=== PATIENT | male | born 1985 | race Caucasian/White ===

== ENCOUNTER 2023-02-27 06:22 | Emergency (ER) | payer BC ==
[~2023-02-27] VITALS: Ht 167.6 cm; Wt 96.0 kg
[2023-02-27 06:25] VITALS: BP 120/84; PULSE 112; RESP 16; TEMP 98.5; O2SAT 97
[2023-02-27 07:41] LABS: BASOPHILS % 0.3 % (0.0-2.0); EOSINOPHILS % 0.9 % (0.0-5.0); HEMATOCRIT. 47.1 % (42.0-52.0); HEMOGLOBIN. 15.9 g/dL (14.0-18.0); LYMPHOCYTES % 7.6 % (20.0-50.0); MEAN CORPUSCULAR HGB CONC 33.8 g/dL (31.0-37.0); MEAN CORPUSCULAR VOLUME 85.8 fL (80.0-94.0); MEAN PLATELET VOLUME 8.6 fl (7.4-10.4); MONOCYTES % 5.6 % (2.0-8.0); NEUTROPHILS % 85.6 % (40.0-76.0); PLATELET 265 x1000/uL (130-400); RED BLOOD CELL COUNT 5.49 mill/uL (4.7-6.1); WHITE BLOOD COUNT 11.2 x1000/uL (4.5-11.0)
[2023-02-27 07:42] LABS: ALANINE AMINOTRANSFERASE 46 IU/L (10-49); ALBUMIN 4.5 g/dL (3.2-4.8); ASPARTATE AMINOTRANSFERASE 24 IU/L (<34); BILIRUBIN TOTAL 0.5 mg/dL (0.1-1.0); CALCIUM 9.4 mg/dL (8.7-10.4); CARBON DIOXIDE 24 mEq/L (21-32); CHLORIDE 105 mEq/L (98-107); CREATININE 0.8 mg/dL (0.6-1.3); GLUCOSE 110 mg/dL (70-105); POTASSIUM 3.9 mEq/L (3.5-5.1); PROTEIN TOTAL 7.9 g/dL (6.0-8.3); SODIUM 138 mEq/L (136-145); UREA NITROGEN BLOOD 11 mg/dL (9-23)
[2023-02-27 07:44] LABS: TROPONIN I HIGH SENSITIVITY < 4 ng/L (3.0-53)
[2023-02-27 08:36] LABS: D-DIMER 0.25 mg/L FEU (<0.50); INR 0.9
[2023-02-27 09:46] LABS: ALANINE AMINOTRANSFERASE 46 IU/L (10-49); ALBUMIN 4.6 g/dL (3.2-4.8); ASPARTATE AMINOTRANSFERASE 22 IU/L (<34); BILIRUBIN TOTAL 0.6 mg/dL (0.1-1.0); CALCIUM 9.6 mg/dL (8.7-10.4); CARBON DIOXIDE 24 mEq/L (21-32); CHLORIDE 104 mEq/L (98-107); CREATININE 0.8 mg/dL (0.6-1.3); GLUCOSE 108 mg/dL (70-105); POTASSIUM 4.1 mEq/L (3.5-5.1); PROTEIN TOTAL 7.1 g/dL (6.0-8.3); SODIUM 137 mEq/L (136-145); UREA NITROGEN BLOOD 11 mg/dL (9-23)
[2023-02-27 09:53] LABS: TROPONIN I HIGH SENSITIVITY < 4 ng/L (3.0-53)
[2023-02-27] MEDS ORDERED: DOCUSATE SODIUM 100MG CAPSULE PO PRN (11:00)
[2023-02-27] MEDS ORDERED: NA PHOS,M-B/NA PHOS,DI-BA ENEMA 118ML PR PRN (11:00)
[2023-02-27] MEDS ORDERED: MAGNESIUM/ALUMINUM HYDROXIDE/SIMETHICONE 30ML UDC PO PRN (11:00)
[2023-02-27] MEDS ORDERED: ONDANSETRON HCL 4MG/2ML INJ IV PRN (11:00)
[2023-02-27] MEDS ORDERED: GUAIFENESIN 200MG/10ML SUGAR FREE UDC PO PRN (11:00)
[2023-02-27] MEDS ORDERED: CLONIDINE 0.1MG TABLET PO PRN (11:00)
[2023-02-27] MEDS ORDERED: NITROGLYCERIN 0.4MG TABLET SL SL PRN (11:00)
[2023-02-27] MEDS ORDERED: KETOROLAC 15MG/ML VIAL IV PRN (11:00)
[2023-02-27] MEDS ORDERED: IPRATROPIUM/ALBUTEROL 0.5-3(2.5)MG/3ML NEB NEB PRN (11:00)
[2023-02-27] MEDS ORDERED: ACETAMINOPHEN 325MG TABLET PO PRN ×2 (11:00)
[2023-02-27 11:53] LABS: CHOLESTEROL 165 mg/dL (<200); HDL CHOLESTEROL 42 mg/dL (>55); IRON 36 ug/dL (65-175); LDL CHOLESTEROL 111 mg/dL (5-100); T4 FREE 0.89 ng/dL (0.89-1.76); THYROID STIMULATING HORMONE 0.72 uIU/mL (0.55-4.78); TOTAL IRON BINDING CAPACITY 301 ug/dl (250-425); TRIGLYCERIDE 169 mg/dL (0-150)
[2023-02-27 11:58] LABS: ETHANOL BLOOD < 10 mg/dL (<10)
[2023-02-27] MEDS ORDERED: ENOXAPARIN 40MG/0.4ML SYR SUBCUT SCH (12:00)
[2023-02-27 12:43] LABS: FOLIC ACID (FOLATE) SERUM 12.22 ng/mL (>5.38); VITAMIN B12 SERUM 685 pg/mL (211-911)
[2023-02-27] MEDS ORDERED: ZOLPIDEM TARTRATE 5MG TABLET PO PRN (21:00)
[2023-02-27] MEDS ORDERED: FAMOTIDINE 20MG TABLET PO SCH (21:00)
[2023-02-28] MEDS ORDERED: ASPIRIN 325MG EC TABLET PO SCH (09:00)
== END 2023-02-27 13:50 | disposition left against medical advice (07) ==
LOC: ER 06:22 → EDBEDREQ 10:17 → EDBEDREQTM 10:17 → ER 13:50 → CANBEDREQ 14:44
DX: R07.9 Chest pain, unspecified (principal); J98.11 Atelectasis
CPT/HCPCS: 36415; 71045; 80053; 80061; 80320; 82607; 82746; 83036; 83540; 83550; 83880; 84439; 84443; 84484; 85025; 85379; 93005; 99285; G0480